=== PATIENT | female | born 1985 | race Caucasian/White ===

== ENCOUNTER 2024-04-30 21:30 | Inpatient (IN) | payer OTHER, SELFPAY ==
--- NOTE | 2024-04-30 17:19 | P.EN_ITS ---
Documented by User: Juliann Lizarraga APRN 04/30/24 17:24 Event Note Date of Service: 04/30/24 Event Note: Review of care with Dr. Villeda of [facility]. Pt is s/p OD of Fentanyl, Verapamil. Admitted on 04/27 to ICU, intubated, hypothermic and bradycardic. Pt was treated conservatively with a washout. She reports being in recovery for ~2 months. Partner just discharged from a program, brought drugs into the home and pt used more than she was aware of. Team reports three such instances requiring medical care since December 2023. Team finds her to be significantly impaired, she is involuntary, does not believe she is in need of treatment and she disagrees with plan of care. She was extubated on 04/29. Chest xray is clear, no sx pneumonia, WBC trending down. Hx of HTN, Epilepsy, Depression, and Opiate Use Disorder- currently on Methadone. Time Spent With Patient Time: Total time managing care of this patient today ____ minutes. Documented by User: Dionicio Ford MD 05/02/24 00:19 Event Note Date of Service: 05/02/24
[2024-05-01 00:30] VITALS: BMI 18.8
--- NOTE | 2024-05-01 00:38 | PC.ADMIT ---
Humera Zhong, 39years old female with past medical hx opiod use d/o, polysubstance abuse, transaminitis, posterior reversible encephalopathy syndrome, abdominal muscle pain, and NERIS, who presented [facility] ED via ambulance after being found unresponsive at her friend's parents' home. Per the ED providers note, pt presented with AMS, bradycardia with suspicion for opiate pain calcium channel cristi OD. Humera required intubating and admission to ICU. Per crisis assessment at [facility], pt. denied trying to kill herself and had reported that she had not used Fentanyl in nearly 2months prior to that day, I dont know why I decided to use and I definitely used too much. Pt arrived to [facility] unit @ 1508 on 04/30/24 with an admitting diagnosis of Unspecified Depressive Disorder. pt. is alert and oriented x4, on 12B. Pt's affect is blunt, incongruent to mood. pt. is calm and pleasant upon arrival, engages easily and complaint with admission process, denied anxiety and depression, asymptomatic of psychiatric symptoms, denied SI/HI/AVH, contracted for safety, VSS. Pt. with no visible skin issues noted, only an old scar on the right eyebrow area. Pt's med. rec competed and provider notified. pt oriented to unit. Pt.'s belongings inventoried/secured. Hospitalist consulted for medical clearance.
--- NOTE | 2024-05-01 07:18 | PC.NURSE ---
Pt on a section 12B and requested to have [facility] notified. [facility] notified.
--- NOTE | 2024-05-01 09:20 | P.HPPS_ITS ---
HPI Date of Service: 05/01/24 Chief Complaint: Unspecified Depressive Disorder Sources of Information: patient interviewed, chart reviewed and crisis/core team assessment reviewed HPI Subjective Notes: [place] Warning, Conditional Voluntary and 3 Day Narrative: Patient is a 39-year-old female with history of PTSD, opioid use disorder who presents from [facility], following fentanyl overdose requiring ICU admission. This is patient's 3rd overdose since December, requiring medical admission. Patient reports to race and sports book writer that this past December 13 she had been using fentanyl and although she went to detox, was excessively sick with intractable vomiting and was transferred to [facility] and medically admitted there. After she was discharged, patient reports she continues to use fentanyl. Patient tells race and sports book writer that on March 07, she accidentally overdosed on fentanyl, her partner called 911 and patient was hospitalized. She tells race and sports book writer she was hospitalized for 7 days and that for 2 days [she] was in a coma and [she] had a brain bleed. P inocencio reports that for about a month and a half she was able to remain sober, while her partner was away at treatment. During this time her partner said she had fentanyl in 1 of her bags at home and patient said she tried to find it but could not; she explains that the day her partner returned, her partner showed her where it was hidden they together used fentanyl, patient saying she could not resist and reports that on April 27 she again overdosed and was medically admitted to [facility], to the ICU and required intubation. She reports this was accidental and not suicidal; also says she took losartan that morning which is her prescribed medication. Patient denies any SI; she says she has 2 daughters and that she needs to be here for them. She denies depression or anxiety; acknowledges history of trauma but says only has PTSD symptoms every few weeks such as nightmares. Patient says she wants to be sober even if her partner does not, but she has no plans for how to pursue this. Patient says to race and sports book writer she has never been to a program for sobriety or engaged in any community help with pursuing sobriety. She does not want a program now, feeling it is too restrictive. She says she is open to perhaps getting a data recovery planner or going to , however she is not willing to commit to these at this time; she is open to considering partial day program but again not ready to commit to this. Custom Stock Maker discussed how serious and life-threatening these overdoses have been; patient says she understands but reiterates that she is committed to staying sober. Custom Stock Maker discussed how difficult it is to stay sober and the need for significant and continued community support; patient remains ambivalent. She would like to get back on methadone. Patient is on a 12 B, refusing to sign in. Patient reports she is now homeless, unable to return to her partner's (since they were living together with her partner's family members) and unable to live at her father's; despite this, she maintains that she does not need psychiatric help and wants to discharge. -patient denies history of manic type episodes or behaviors; denies any AVH -Patient denies alcohol use or abuse pt seen at 1:00pm on 05/01/24 Past Psychiatric History: Denies any past psychiatric hospitalizations Denies any history of psychiatric medication trials No history of suicidality Reports that in high school she would periodically superficially cut as a coping mechanism but has not engaged since high school Medical Evaluation Reviewed: Hospitalist [facility] Pending [facility] Medical History (Updated 05/02/24 @ 12:26 by Sam Terrell MD) PTSD (post-traumatic stress disorder) Opioid use disorder, severe, dependence Depression Mild intermittent asthma GERD (gastroesophageal reflux disease) Substance use disorder HTN (hypertension) Family History: Mother: Depression/anxiety/SI Maternal uncle by suicide Social History: Dropped out of high school in her senior year after mother was diagnosed with cancer Got her GED Patient has 2 daughters, 14 and 16-year-old who live with their biological father Patient is with her partner of 16 years Patient remains in close contact with her father who is supportive She is estranged from siblings Substance History: Patient reports cannabis and Percocets starting in high school Patient eventually started using heroin and switch to [facility]anyl [facility] she has been using since; has been on methadone since 2021, up to 130 mg Last cocaine use a few months ago; denies daily cocaine abuse Denies alcohol use Trauma History: Positive reports history of trauma; did not want to discuss Diagnostics Vital Signs (24Hr): BMI result Body Mass Index 18.8 Meds/Allergies Meds Home Medications ?Medication ?Instructions ?Recorded ?Confirmed ?Type albuterol 90 mcg/actuation aerosol 90 mcg inhalation QID PRN SOB 04/30/24 History inhaler aspirin 81 mg PO DAILY 04/30/24 04/30/24 History losartan 50 mg PO DAILY 04/30/24 04/30/24 History methadone 30 mg PO DAILY 04/30/24 04/30/24 History pantoprazole 40 mg PO DAILY 04/30/24 04/30/24 History verapamil 40 mg PO TID 04/30/24 04/30/24 History Allergies Allergies Allergy/AdvReac Type Severity Reaction Status Date / Time verapamil Allergy Unknown Unknown Verified 04/30/24 17:19 sour cream Allergy Unknown Unknown Uncoded 04/30/24 17:19 Mental Status Exam Mental Status Exam Narrative: Pt is alert and oriented; behavior is a little guarded, but mostly cooperative, calm, polite; patient is not in distress; dressed in casual attire, disheveled; mood is described as okay and affect congruent, constricted; eye contact appropriate; Speech is normal rate, volume and prosody and not pressured; some psychomotor retardation present; thought process is organized and goal directed; Thought content is on discharge; otherwise pertinent to relevant topics and without any delusional content, paranoid ideations or grandiosity; denies any SI/HI. There is no evidence of perceptual disturbance and denies AVH. Patients insight and judgment impaired regarding risk of relapse and consequences Assessment & Plan Assessment & Plan (1) Opioid use disorder, severe, dependence: Status: Acute Code(s): F11.20 - Opioid dependence, uncomplicated (2) PTSD (post-traumatic stress disorder): Status: Acute Code(s): F43.10 - Post-traumatic stress disorder, unspecified (3) HTN (hypertension): Status: Acute Code(s): I10 - Essential (primary) hypertension (4) Mild intermittent asthma: Status: Acute Code(s): J45.20 - Mild intermittent asthma, uncomplicated Plan Patient is a 39-year-old female with history of PTSD, opioid use disorder who presents from [facility], following fentanyl overdose requiring ICU admission. This is patient's 3rd overdose since December, requiring medical admission. Patient reports to race and sports book writer that this past December 13 she had been using fentanyl and although she went to detox, was excessively sick with intractable vomiting and was transferred to [facility] and medically admitted there. After she was discharged, patient reports she continues to use fentanyl. Patient tells race and sports book writer that on March 07, she accidentally overdosed on fentanyl, her partner called 911 and patient was hospitalized. She tells race and sports book writer she was hospitalized for 7 days and that for 2 days [she] was in a coma and [she] had a brain bleed. Patient reports that for about a month and a half she was able to remain sober, while her partner was away at treatment. During this time her partner said she had fentanyl in 1 of her bags at home and patient said she tried to find it but could not; she explains that the day her partner returned, her partner showed her where it was hidden they together used fentanyl, patient saying she could not resist and reports that on April 27 she again overdosed and was medically admitted to [facility], to the ICU and required intubation. She reports this was accidental and not suicidal; also says she took losartan that morning which is her prescribed medication. Patient denies any SI; she says she has 2 daughters and that she needs to be here for them. She denies depression or anxiety; acknowledges history of trauma but says only has PTSD symptoms every few weeks such as nightmares. Patient says she wants to be sober even if her partner does not, but she has no plans for how to pursue this. Patient says to race and sports book writer she has never been to a program for sobriety or engaged in any community help with pursuing sobriety. She does not want a program now, feeling it is too restrictive. She says she is open to perhaps getting a data recovery planner or going to , however she is not willing to commit to these at this time; she is open to considering partial day program but again not ready to commit to this. Custom Stock Maker discussed how serious and life-threatening these overdoses have been; patient says she understands but reiterates that she is committed to staying sober. Custom Stock Maker discussed how difficult it is to stay sober and the need for significant and continued community support; patient remains ambivalent. She would like to get back on methadone. Patient is on a 12 B, refusing to sign in. Patient reports she is now homeless, unable to return to her partner's (since they were living together with her partner's family members) and unable to live at her father's; despite this, she maintains that she does not need psychiatric help and wants to discharge. -patient denies history of manic type episodes or behaviors; denies any AVH -Patient denies alcohol use or abuse Formulation/clinical reasoning: Patient has a significant history of opioid addiction. Since December, she has required 3 inpatient medical hospitalizations due to fentanyl overdoses. Patient denies any SI at all and maintains that each overdose has been accidental; however, despite her resulting near experiences, patient continues to relapse. Either she does not want to or has been unable to extricate herself from her lifestyle in order to engage in treatment for sobriety. Patient says she wants to be sober but is unwilling to commit to a plan to pursue sobriety and she significantly minimizes her need for help and her risk for relapse. Patient is now homeless, without any providers, a erapist or any sobriety treatment in place. She remains at high risk for accidental overdose. Thoroughly discussed case with team and given this risk and lack of supports, team is carefully considering the need to petition the court for a section 35. -patient denies any psychiatric symptoms including any SI; however as she is unknown to this hospital and she has had multiple overdoses, will admit to inpatient unit to monitor and assess Plan: Twelve B Q 15 minute checks Will restart methadone and taper back up to 40 mg, as tolerated; patient says she was on 40 mg prior to recent medical hospitalization Will get EKG to assess QTC Will ask if can pursue collateral as patient says her father supportive Continue losartan; Patient reports history of hypertension and has been on losartan Patient does not know why she was started on aspirin; says she does not want it; per patient refusal, will DC aspirin as well as out of concern for her self reported recent history of brain bleed Patient does not want PPI Patient educated on: diagnosis, medication risk/benefits, substance abuse, therapeutic strategies and medical condition Informed Consent: understands Reason for continued inpatient stay Substantial Risk for: stable for discharge and rapid decompensation Statement Statement: I have reviewed the history and physical and performed a pertinent examination on my patient. No changes have occurred unless specified. If the History and Physical was not performed prior to admission, the Hospitalist's service will be consulted for completing the admission physical. Time Spent With Patient Time: Total time managing care of this patient today ____ minutes.
[2024-05-01] MEDS: Acetaminophen 325 MG TABLET 650 MG PO ×2 (09:26→17:35)
[2024-05-01] MEDS: hydrOXYzine HCL 25 MG TABLET PO ×2 (09:26→17:34)
[2024-05-01] MEDS: Aspirin 81 MG TAB.CHEW PO (09:27)
[2024-05-01 09:30] LABS: Estimated Average Glucose 94 mg/dL; Hemoglobin A1C 139.7407 umol/L; Hemoglobin A1c % 4.9 % (<6.0); Total Hemoglobin (HGBA1C) 4671.2009 umol/L
[2024-05-01 09:33] LABS: Cholesterol 195 mg/dL (<200); HDL Cholesterol 58 mg/dL (>40); LDL Cholesterol Calculated 117 mg/dL (<100); Magnesium 2.3 mg/dL (1.6-2.6); Triglycerides 100 mg/dL (<150)
[2024-05-01 09:49] LABS: Free T4 (Free Thyroxine) 1.16 ng/dL (0.71-1.85); Thyroid Stimulating Hormone 0.29 uIU/mL (0.32-4.0)
--- NOTE | 2024-05-01 10:20 | P.CNHOSGPS_ITS ---
History of Present Illness Data of Consult Service Date: 05/01/24 Requesting physician: Sam Terrell Primary Care Provider: Unknown Physician HPI Reason for consult: medical consult Patient is a 32-year-old female with a past medical history significant for major depression, hypertension, substance use disorder (fentanyl previously injected now intranasally), mild intermittent asthma, GERD, multiple ICU admissions at [facility] requring intubation secondary to OD and recent brain bleed on 03/07/24. Pt states she was told she will likely have seizures afterwards and was started on verapamil but reports no seizures since being discharged in February. She recently OD'd on fentanyl and verapamil after 2 months of sobriety and was admitted to adult psych with concerns for MDD and SI, however, pt declines. She has no medical concerns today and denies chest pain, SOB, abd pain, nausea, vomting, weakness or dizziness. Review of Systems Constitutional: Constitutional: Denies body ache(s), Denies chills, Denies fatigue and Denies headache(s) Eyes: Eyes: Denies blurry vision and Denies change in vision ENT: Reports Normal hearing present, Denies vertigo, Denies headache(s), Denies nasal congestion, Denies nasal obstruction, Denies post nasal drip and Denies sore throat Cardiovascular: Cardiovascular: Denies chest pain, Denies rapid heart rate, Denies leg edema and Denies dyspnea Respiratory: Respiratory: Denies chest congestion, Denies cough and Denies dyspnea Genitourinary: Genitourinary: Denies dysuria and Denies urinary urgency Musculoskeletal: Musculoskeletal: Denies myalgias Integumentary/Breasts: Skin/Breast: Denies rash Neurologic: Reports Normal hearing present, Denies confusion, Denies vertigo, Denies headache(s) and Denies memory loss Psychiatric: Psychiatric: Denies confusion and Denies memory loss Endocrine: Endocrine: Denies fatigue [facility] Medical History (Updated 05/01/24 @ 10:31 by Debbie Stockton PA-C) Depression Mild intermittent asthma GERD (gastroesophageal reflux disease) Substance use disorder HTN (hypertension) Functional capacity: independent ambulation Social History Patient Tobacco Use Status: Current everyday Tobacco user Tobacco use type: Cigarette Cigarette Packs Per Day: 4 Cigarettes Per Day: 80.0 Years Smoked: 22 Smoked in Last 30 Days: Yes e-Cigarette/Vaping Use: Never Used Patient Interested in Nicotine Replacement: No Substance Use Type: Heroin and Marijuana Substance Use Frequency: Occasionally Last Used Substance: Days (ago) Currently Displaying Signs/Symptoms of Drug Intoxication Withdrawal: No Any prior treatment program specific to substance use: Yes (per pt attends a clinic for methadone) Have you been hit, kicked, punched, or otherwise hurt by someone within the past year? If so, by whom?: No Do you feel safe in your current relationship?: No Is there a partner from a previous relationship who is making you feel unsafe now?: No Are you made to feel afraid or neglected: No Advance Directives: No Advance Directives Information Provided: Yes Do you have a plan to hurt others: No Plan Recently lost weight without trying: No Nutrition Risks: No Nutritional Risk Patient : No : No Poor oral hygiene: No Meds Allergies Allergy/AdvReac Type Severity Reaction Status Date / Time verapamil Allergy Unknown Unknown Verified 04/30/24 17:19 sour cream Allergy Unknown Unknown Uncoded 04/30/24 17:19 Active Medications: Current Medications Acetaminophen (Acetaminophen 325 Mg Tablet) 650 mg PO Q6H PRN PRN Reason: Headache/Pain Mild Scale (1-3) Last Admin: 05/01/24 09:26 Dose: 650 mg Al Hydroxide/Mg Hydroxide (Magnesium Hydrox/Alum Hydrox 30 Ml Oral.Susp) 30 ml PO Q6H PRN PRN Reason: Heartburn/Nausea Albuterol Sulfate (Albuterol Sulfate 90 Mcg 8 Gm Inhaler) 2 puff INHALE RQ6H PRN PRN Reason: wheeze Aspirin (Aspirin 81 Mg Tab.Chew) 81 mg PO DAILY WESLEY Last Admin: 05/01/24 09:27 Dose: 81 mg Hydroxyzine HCl (Hydroxyzine Hcl 25 Mg Tablet) 25 mg PO Q6H PRN PRN Reason: Anxiety Last Admin: 05/01/24 09:26 Dose: 25 mg Losartan Potassium (Losartan Potassium 50 Mg Tablet) 50 mg PO DAILY WESLEY; Protocol Magnesium Hydroxide (Milk Of Magnesia 30 Ml Oral.Susp) 30 ml PO DAILY PRN PRN Reason: Constipation Nicotine (Nicotine 21 Mg Patch.Td24) 21 mg TRANSDERMA DAILY PRN PRN Reason: nicotine cravings Nicotine Polacrilex (Nicotine Polacrilex 2 Mg Gum) 4 mg BUCCAL Q2H PRN PRN Reason: Nicotine Cravings Non-Formulary Medication (Non-Formulary Medication) 1 each PO DAILY WESLEY Trazodone HCl (Trazodone Hcl 50 Mg Tablet) 50 mg PO BEDTIME MRX1 PRN PRN Reason: Insomnia Home Medications ?Medication ?Instructions ?Recorded ?Confirmed ?Last Taken ?Type albuterol 90 mcg/actuation aerosol 90 mcg inhalation QID PRN SOB 04/30/24 04/30/24 Unknown History inhaler aspirin 81 mg PO DAILY 04/30/24 04/30/24 Unknown History losartan 50 mg PO DAILY 04/30/24 04/30/24 Unknown History methadone 30 mg PO DAILY 04/30/24 04/30/24 Unknown History pantoprazole 40 mg PO DAILY 04/30/24 04/30/24 Unknown History verapamil 40 mg PO TID 04/30/24 04/30/24 Unknown History Results Labs Labs: Laboratory Results - last 24 hr 05/01/24 08:45 Estimat Average Glucose 94 Hemoglobin A1c % 4.9 Magnesium 2.3 Triglycerides 100 Cholesterol 195 LDL Cholesterol, Calc 117 H HDL Cholesterol 58 TSH 0.29 L Free T4 1.16 Assessment and Plan (1) Medical clearance for psychiatric admission: Status: Acute Plan Patient is a 32-year-old female with a past medical history significant for major depression, hypertension, substance use disorder (fentanyl previously injected now intranasally), mild intermittent asthma, GERD, multiple ICU admissions at [facility] requring intubation secondary to OD and recent brain bleed on 03/07/24. mood disorder - plan per psych FILI - restart methadone once dose confirmed mild intermittent asthma - no acute exacerbation - albuterol PRN GERD - continue PPI ?seizure disorder - will look into [facility] records, no seizure meds in med rec HTN - continue lostartan Thank you for allowing me to participate in the pt's care. Please contact the medical team if any questions or concerns. Physical Exam Vital Signs: BMI result Body Mass Index 18.8 General: AOx3, no acute distress, laying in bed comfortably Resp: CTA bilaterally CVS: S1, S2, RRR GI: +BS, NT, no distention Skin: Warm, dry Neuro: Cranial nerves II-XII grossly intact bilaterally. Motor grossly intact bilaterally Extremities: No edema Psych: Appropriate affect Const General: No confusion Orientation/consciousness: No confusion Eyes Pupils: Equal, round and reactive pupils present Neuro General: No confusion Cranial nerves: Yes CN's II-XII intact bilaterally, Yes Facial sensation intact/muscles of mastication intact, Yes Intact sense of smell present, Yes Equal, round and reactive pupils present, Yes Normal accommodation reflex present, Yes Bilaterally intact EOM present, Yes Nystagmus not present, Yes Normal facial strength present, Yes Midline tongue present, Yes Symmetric palate elevation present, Yes Normal hearing present, Yes Ability to bilaterally rotate head present and Yes Ability to bilaterally elevate shoulders present Cognition (Neuro): normal cognition Gait exam (Neuro): Normal gait present Motor exam (neuro): 5/5 motor strength present throughout
--- NOTE | 2024-05-01 11:21 | P.CONHOSP_ITS ---
History of Present Illness Data of Consult Service Date: 05/01/24 Requesting physician: Sam Terrell Primary Care Provider: Unknown Physician HPI Reason for consult: medical consult Patient is a 32-year-old female with a past medical history significant for major depression, hypertension, substance use disorder (fentanyl previously injected now intranasally), mild intermittent asthma, GERD, multiple ICU admissions at [facility] requring intubation secondary to OD and recent brain bleed on 03/07/24. Pt states she was told she will likely have seizures afterwards and was started on verapamil but reports no seizures since being discharged in February. She recently OD'd on fentanyl and verapamil after 2 months of sobriety and was admitted to adult psych with concerns for MDD and SI, however, pt declines.? She has no medical concerns today and denies chest pain, SOB, abd pain, nausea, vomting, weakness or dizziness. Review of Systems Constitutional: Constitutional: Denies chills, Denies fatigue and Denies headache(s) Eyes: Eyes: Denies change in vision ENT: Denies headache(s), Denies nasal congestion, Denies nasal obstruction, Denies post nasal drip and Denies sore throat Cardiovascular: Cardiovascular: Denies chest pain, Denies rapid heart rate, Denies leg edema and Denies dyspnea Respiratory: Respiratory: Denies chest congestion, Denies cough, Denies dyspnea and Denies wheezing Gastrointestinal: Gastrointestinal: Denies constipation, Denies diarrhea, Denies nausea and Denies vomiting Genitourinary: Genitourinary: Denies dysuria and Denies urinary urgency Musculoskeletal: Musculoskeletal: Denies myalgias, Denies numbness and Denies tingling Integumentary/Breasts: Skin/Breast: Denies rash Neurologic: Denies confusion, Denies headache(s), Denies numbness and Denies tingling Psychiatric: Psychiatric: Denies confusion Endocrine: Endocrine: Denies fatigue Allergic/Immunologic: Allergic/Immunologic: Denies wheezing [facility] Medical History (Updated 05/01/24 @ 10:31 by Debbie Stockton PA-C) Depression Mild intermittent asthma GERD (gastroesophageal reflux disease) Substance use disorder HTN (hypertension) Functional capacity: independent ambulation Social History Patient Tobacco Use Status: Current everyday Tobacco user Tobacco use type: Cigarette Cigarette Packs Per Day: 4 Cigarettes Per Day: 80.0 Years Smoked: 22 Smoked in Last 30 Days: Yes e-Cigarette/Vaping Use: Never Used Patient Interested in Nicotine Replacement: No Substance Use Type: Heroin and Marijuana Substance Use Frequency: Occasionally Last Used Substance: Days (ago) Currently Displaying Signs/Symptoms of Drug Intoxication Withdrawal: No Any prior treatment program specific to substance use: Yes (per pt attends a clinic for methadone) Have you been hit, kicked, punched, or otherwise hurt by someone within the past year? If so, by whom?: No Do you feel safe in your current relationship?: No Is there a partner from a previous relationship who is making you feel unsafe now?: No Are you made to feel afraid or neglected: No Advance Directives: No Advance Directives Information Provided: Yes Do you have a plan to hurt others: No Plan Recently lost weight without trying: No Nutrition Risks: No Nutritional Risk Patient : No : No Poor oral hygiene: No service: No Sexual orientation: Straight/Heterosexual Meds Allergies Allergy/AdvReac Type Severity Reaction Status Date / Time verapamil Allergy Unknown Unknown Verified 04/30/24 17:19 sour cream Allergy Unknown Unknown Uncoded 04/30/24 17:19 Active Medications: Current Medications Acetaminophen (Acetaminophen 325 Mg Tablet) 650 mg PO Q6H PRN PRN Reason: Headache/Pain Mild Scale (1-3) Last Admin: 05/01/24 09:26 Dose: 650 mg Al Hydroxide/Mg Hydroxide (Magnesium Hydrox/Alum Hydrox 30 Ml Oral.Susp) 30 ml PO Q6H PRN PRN Reason: Heartburn/Nausea Albuterol Sulfate (Albuterol Sulfate 90 Mcg 8 Gm Inhaler) 2 puff INHALE RQ6H PRN PRN Reason: wheeze Aspirin (Aspirin 81 Mg Tab.Chew) 81 mg PO DAILY [facility] Last Admin: 05/01/24 09:27 Dose: 81 mg Hydroxyzine HCl (Hydroxyzine Hcl 25 Mg Tablet) 25 mg PO Q6H PRN PRN Reason: Anxiety Last Admin: 05/01/24 09:26 Dose: 25 mg Losartan Potassium (Losartan Potassium 50 Mg Tablet) 50 mg PO DAILY [facility]; Protocol Magnesium Hydroxide (Milk Of Magnesia 30 Ml Oral.Susp) 30 ml PO DAILY PRN PRN Reason: Constipation Nicotine (Nicotine 21 Mg Patch.Td24) 21 mg TRANSDERMA DAILY PRN PRN Reason: nicotine cravings Nicotine Polacrilex (Nicotine Polacrilex 2 Mg Gum) 4 mg BUCCAL Q2H PRN PRN Reason: Nicotine Cravings Non-Formulary Medication (Non-Formulary Medication) 1 each PO DAILY [facility] Trazodone HCl (Trazodone Hcl 50 Mg Tablet) 50 mg PO BEDTIME MRX1 PRN PRN Reason: Insomnia Home Medications ?Medication ?Instructions ?Recorded ?Confirmed ?Last Taken ?Type albuterol 90 mcg/actuation aerosol 90 mcg inhalation QID PRN SOB 04/30/24 04/30/24 Unknown History inhaler aspirin 81 mg PO DAILY 04/30/24 04/30/24 Unknown History losartan 50 mg PO DAILY 04/30/24 04/30/24 Unknown History methadone 30 mg PO DAILY 04/30/24 04/30/24 Unknown History pantoprazole 40 mg PO DAILY 04/30/24 04/30/24 Unknown History verapamil 40 mg PO TID 04/30/24 04/30/24 Unknown History Physical Exam Vital Signs and Narrative: Vital Signs: BMI result Body Mass Index 18.8 General: AOx3, no acute distress, laying in bed comfortably Resp: CTA bilaterally CVS: S1, S2, RRR GI: +BS, NT, no distention Skin: Warm, dry Neuro: Cranial nerves II-XII grossly intact bilaterally. Motor grossly intact bilaterally Extremities: No edema Psych: Appropriate affect Const: General: No confusion Orientation/consciousness: No confusion Neuro: General: No confusion Results Labs Labs: Laboratory Results - last 24 hr 05/01/24 08:45 Estimat Average Glucose 94 Hemoglobin A1c % 4.9 Magnesium 2.3 Triglycerides 100 Cholesterol 195 LDL Cholesterol, Calc 117 H HDL Cholesterol 58 TSH 0.29 L Free T4 1.16 Assessment and Plan (1) Medical clearance for psychiatric admission: Status: Acute Plan Patient is a 32-year-old female with a past medical history significant for major depression, hypertension, substance use disorder (fentanyl previously injected now intranasally), mild intermittent asthma, GERD, multiple ICU admissions at [facility] requring intubation secondary to OD and recent brain bleed on 03/07/24. mood disorder - plan per psych FILI - restart methadone once dose confirmed mild intermittent asthma - no acute exacerbation - albuterol PRN GERD - continue PPI ?seizure disorder - will look into [facility] records, no seizure meds in med rec HTN - continue lostartan Thank you for allowing me to participate in the pt's care. Please contact the medical team if any questions or concerns.
--- NOTE | 2024-05-01 13:21 | MHC.RECOVRN ---
Met with pt in 512 after consult placed to Addiction Medicine for methadone and multiple overdoses. Pt laying in bed, eyes closed, wakes to voice and engages in conversation. Pt reports she had been on 40 mg methadone since Mar 12. She had previously been on higher doses but after an overdose and hospitalization she was brought down to 40 mg. Pt reports 40 mg has been adequate, has not had cravings, has not used in nearly 2 months. Pt reports last dose of methadone was 03/26. Pt reports on 03/26 she used heroin/fentanyl, a little, [place],which resulted in overdose. Pt was brought to [facility] and subsequently transferred to . Pt reports none of her overdoses have been intentional. Pt currently reporting feeling hot/cold, denies other withdrawal symptoms. Pt would like to restart methadone with a goal of 40 mg daily. Pt denies other questions or concerns at this time. Discussed with Juliana Mason APRN.
[2024-05-01 13:41] VITALS: BP 127/74; PULSE 70
[2024-05-01] MEDS: methADONE HCl 20 MG/2 ML ORAL.CONC 10 MG PO ×2 (14:26→22:19)
[2024-05-01] MEDS: Losartan Potassium 50 MG TABLET PO (14:40)
[2024-05-01 20:00] VITALS: BP 129/74; PULSE 68; RESP 16; TEMP 37.3; O2SAT 99
--- NOTE | 2024-05-02 | ECG_ITS ---
Test Reason : qtc check Blood Pressure : / mmHG Vent. Rate : 070 BPM Atrial Rate : 070 BPM P-R Int : 130 ms QRS Dur : 070 ms QT Int : 372 ms P-R-T Axes : 066 004 043 degrees QTc Int : 401 ms Normal sinus rhythm Normal ECG No previous ECGs available Referred By: Sam Terrell Electronically Signed By:ROLANDO BRADEN MD
[2024-05-02] MEDS: methADONE HCl 20 MG/2 ML ORAL.CONC PO (07:37)
[2024-05-02 08:06] VITALS: BP 130/81; PULSE 92; RESP 16; TEMP 36.6; O2SAT 98
[2024-05-02] MEDS: Losartan Potassium 50 MG TABLET PO (08:52)
[2024-05-02] MEDS: hydrOXYzine HCL 25 MG TABLET PO ×2 (10:17→17:56)
--- NOTE | 2024-05-02 12:28 | HO.PSYCHPN ---
Subjective Subjective Date of Service: 05/02/24 Reason For Visit: Unspecified Depressive Disorder Interim History: Met with patient; discussed with team Patient says she is doing well; feels that methadone dose of 20 mg is adequate; says she is eating and sleeping well and thinking more clearly now that she is sober. Patient said that she has wanted to be sober for while, and again explains that while she was sober for a few weeks, watching her partner continue to use she had more clarity on how serious their addiction was; she also reiterates that her overdoses and subsequent hospitalizations are scary and that she wants to be around for her children. 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 However she wants to pursue this on her own; she does not want to attend partial day program. Her plan for sobriety is to try and occupy her time during the day though she does not have many specifics other than to spend time with her father. She says she currently has no where to go; she might rent a hotel room with her partner. Mental Status Exam Mental Status Exam Narrative: Pt is alert and oriented; behavior is a calm, polite; keeps to herself; patient is not in distress; dressed in casual attire, unkempt; mood is described as better and affect congruent, brighter; eye contact appropriate; Speech is normal rate, volume and prosody and not pressured; no psychomotor retardation present; thought process is organized and goal directed; Thought content is on discharge, sobriety; otherwise pertinent to relevant topics and without any delusional content, paranoid ideations or grandiosity; denies any SI/HI. There is no evidence of perceptual disturbance and denies AVH. Patients insight and judgment impaired regarding risk of relapse and ability to stay sober. Diagnostics Vital Signs (24Hr): Vital Signs - 24 hr 05/01/24 13:41 05/01/24 20:00 05/02/24 08:06 Temperature 99.1 F 97.8 F Pulse Rate 70 68 92 Respiratory Rate 16 16 Blood Pressure 127/74 129/74 130/81 Pulse Oximetry 99 98 Oxygen Delivery Method Room Air Room Air BMI result Body Mass Index 18.8 Labs Labs: Laboratory Results - last 48 hr 05/01/24 08:45 Estimat Average Glucose 94 Hemoglobin A1c % 4.9 Magnesium 2.3 Triglycerides 100 Cholesterol 195 LDL Cholesterol, Calc 117 H HDL Cholesterol 58 TSH 0.29 L Free T4 1.16 Medications Medications Current Medications Acetaminophen (Acetaminophen 325 Mg Tablet) 650 mg PO Q6H PRN PRN Reason: Headache/Pain Mild Scale (1-3) Last Admin: 05/01/24 17:35 Dose: 650 mg Al Hydroxide/Mg Hydroxide (Magnesium Hydrox/Alum Hydrox 30 Ml Oral.Susp) 30 ml PO Q6H PRN PRN Reason: Heartburn/Nausea Albuterol Sulfate (Albuterol Sulfate 90 Mcg 8 Gm Inhaler) 2 puff INHALE RQ6H PRN PRN Reason: wheeze Hydroxyzine HCl (Hydroxyzine Hcl 25 Mg Tablet) 25 mg PO Q6H PRN PRN Reason: Anxiety Last Admin: 05/02/24 10:17 Dose: 25 mg Losartan Potassium (Losartan Potassium 50 Mg Tablet) 50 mg PO DAILY [facility]; Protocol Last Admin: 05/02/24 08:52 Dose: 50 mg Magnesium Hydroxide (Milk Of Magnesia 30 Ml Oral.Susp) 30 ml PO DAILY PRN PRN Reason: Constipation Methadone HCl (Methadone Hcl 20 Mg/2 Ml Oral.Conc) 20 mg PO DAILY@0800 [facility] Last Admin: 05/02/24 07:37 Dose: 20 mg Nicotine (Nicotine 21 Mg Patch.Td24) 21 mg TRANSDERMA DAILY PRN PRN Reason: nicotine cravings Nicotine Polacrilex (Nicotine Polacrilex 2 Mg Gum) 4 mg BUCCAL Q2H PRN PRN Reason: Nicotine Cravings Non-Formulary Medication (Non-Formulary Medication) 1 each PO DAILY [facility] Trazodone HCl (Trazodone Hcl 50 Mg Tablet) 50 mg PO BEDTIME MRX1 PRN PRN Reason: Insomnia Allergies Allergies Allergy/AdvReac Type Severity Reaction Status Date / Time verapamil Allergy Unknown Unknown Verified 04/30/24 17:19 sour cream Allergy Unknown Unknown Uncoded 04/30/24 17:19 Assessment & Plan Assessment & Plan (1) Opioid use disorder, severe, dependence: Status: Acute Code(s): F11.20 - Opioid dependence, uncomplicated (2) PTSD (post-traumatic stress disorder): Status: Acute Code(s): F43.10 - Post-traumatic stress disorder, unspecified (3) HTN (hypertension): Status: Acute Code(s): I10 - Essential (primary) hypertension (4) Mild intermittent asthma: Status: Acute Code(s): J45.20 - Mild intermittent asthma, uncomplicated Plan Patient is a 39-year-old female with history of PTSD, opioid use disorder who presents from [facility], following fentanyl overdose requiring ICU admission. This is patient's 3rd overdose since December, requiring medical admission. Patient reports to freelance writer that this past December 13 she had been using fentanyl and although she went to detox, was excessively sick with intractable vomiting and was transferred to [facility] and medically admitted there. After she was discharged, patient reports she continues to use fentanyl. Patient tells freelance writer that on March 07, she accidentally overdosed on fentanyl, her partner called 911 and patient was hospitalized. She tells freelance writer she was hospitalized for 7 days and that for 2 days [she] was in a coma and [she] had a brain bleed. Patient reports that for about a month and a half she was able to remain sober, while her partner was away at treatment. During this time her partner said she had fentanyl in 1 of her bags at home and patient said she tried to find it but could not; she explains that the day her partner returned, her partner showed her where it was hidden they together used fentanyl, patient saying she could not resist and reports that on April 27 she again overdosed and was medically admitted to [facility], to the ICU and required intubation. She reports this was accidental and not suicidal; also says she took losartan that morning which is her prescribed medication. Patient denies any SI; she says she has 2 daughters and that she needs to be here for them. She denies depression or anxiety; acknowledges history of trauma but says only has PTSD symptoms every few weeks such as nightmares. Patient says she wants to be sober even if her partner does not, but she has no plans for how to pursue this. Patient says to freelance writer she has never been to a program for sobriety or engaged in any community help with pursuing sobriety. She does not want a program now, feeling it is too restrictive. 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 [employer] Operator discussed how serious and life-threatening these overdoses have been; patient says she understands but reiterates that she is committed to staying sober. [employer] Operator discussed how difficult it is to stay sober and the need for significant and continued community support; patient remains ambivalent. She would like to get back on methadone. Patient is on a 12 B, refusing to sign in. Patient reports she is now homeless, unable to return to her partner's (since they were living together with her partner's family members) and unable to live at her father's; despite this, she maintains that she does not need psychiatric help and wants to discharge. -patient denies history of manic type episodes or behaviors; denies any AVH -Patient denies alcohol use or abuse Discussed medication history and patient says she is no longer taking pantoprazole or verapamil and does not want; also as mentioned before does not know why she was started on aspirin and refuses it.? Agrees to losartan.? Blood pressures have been [facility] course: 05/02 Patient says she is doing well; feels that methadone dose of 20 mg is adequate; says she is eating and sleeping well and thinking more clearly now that she is sober. Patient said that she has wanted to be sober for while, and again explains that while she was sober for a few weeks, watching her partner continue to use she had more clarity on how serious their addiction was; she also reiterates that her overdoses and subsequent hospitalizations are scary and that she wants to be around for her children. 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 However she wants to pursue this on her own; she does not want to attend partial day program. Her plan for sobriety is to try and occupy her time during the day though she does not have many specifics other than to spend time with her father. She says she currently has no where to go; she might rent a hotel room with her partner. [employer] Operator broached topic of history of trauma and patient agrees that she would really like to see a therapist. 05/02 EKG: QTc Int : 401 ms Normal sinus rhythm Normal ECG No previous ECGs available Formulation/clinical reasoning: Patient has a significant history of opioid addiction. Since December, she has required 3 inpatient medical hospitalizations due to fentanyl overdoses. Patient denies any SI at all and maintains that each overdose has been accidental; however, despite her resulting near experiences, patient continues to relapse. Either she does not want to or has been unable to extricate herself from her lifestyle in order to engage in treatment for sobriety. Patient is very likely sincere when she says says she wants to be sober, however is not ready to commit to a concrete plan to pursue sobriety and she significantly minimizes her need for help and her risk for relapse. Patient is now homeless, without any providers, without a therapist or any sobriety treatment in place. She remains at high risk for accidental overdose. Team thoroughly discussed case and given this risk, her lack of supports or realistic plan for sobriety, team agrees for the need to petition the court for a section 35. of note, patient denies any psychiatric symptoms including any SI and she is not in imminent psychiatric risk for harm to self or others; her risk is only regarding relapse and accidental overdose. Plan: Twelve B Q 15 minute checks Continue methadone 20 mg daily; will likely increase further and possibly titrate back up to 40 mg; patient says she was on 40 mg prior to recent medical hospitalization Will ask if can pursue collateral as patient says her father supportive Continue losartan 50 mg daily; Patient reports history of hypertension and has been on losartan Said has not been taking aspirin; refuses and says does not know why this was ever started; will DC aspirin as well as out of concern for her self reported recent history of brain bleed Said has not been taking pantoprazole; refuses Said has not been taking verapamil; refuses Patient educated on: diagnosis, medication risk/benefits, substance abuse, therapeutic strategies and medical condition Informed Consent: understands Reason for continued inpatient stay Substantial Risk for: stable for discharge Time Spent With Patient Time: Total time managing care of this patient today ____ minutes.
[2024-05-03] MEDS: methADONE HCl 20 MG/2 ML ORAL.CONC PO (07:47)
[2024-05-03 08:00] VITALS: BP 142/81; PULSE 99; RESP 18; TEMP 36.4; O2SAT 100
[2024-05-03] MEDS: Losartan Potassium 50 MG TABLET PO (08:38)
[2024-05-03] MEDS: Acetaminophen 325 MG TABLET 650 MG PO (08:39)
--- NOTE | 2024-05-03 09:19 | PM.PSYDC ---
DS: Providers Provider Date of Service: 05/03/24 Date of admission: 04/30/24 21:30 Date of discharge: 05/03/24 Primary care physician: Unknown Physician Consults: 04/30/24 22:19 Consult to Hospitalist Routine Comment: Consulting Provider: Hospitalist Reason For Exam: Transfer pt 05/01/24 10:45 Addiction Medicine Stat Consulting Provider: Addiction Covering Reason for consultation: methadone &multiple overdose's since December 2023, resulting in ICU admissions Has provider been notified: Yes DS: Diagnosis Discharge Diagnosis (1) Opioid use disorder, severe, dependence: Status: Acute (2) PTSD (post-traumatic stress disorder): Status: Acute (3) HTN (hypertension): Status: Acute (4) Mild intermittent asthma: Status: Acute DS: Medications Discharge Medications Home Medications: Previous Rx's ?Medication ?Instructions ?Recorded albuterol sulfate 90 mcg/actuation 2 puff inhalation RQ6H PRN 05/03/24 aerosol inhaler (Ventolin HFA) wheeze/SOB 30 days #6.7 grams hydroxyzine HCl 25 mg tablet 25 mg PO Q6H PRN Anxiety 30 days 05/03/24 #90 tabs losartan 50 mg PO DAILY 30 days #30 tabs 05/03/24 methadone 10 mg/mL oral 20 mg (2 mL) PO DAILY@0800 #0 mL 05/03/24 concentrate (Methadose) Mental Status Exam Mental Status Exam Narrative: Pt is alert and oriented; behavior is a calm, polite; keeps to herself; patient is not in distress; dressed in casual attire, unkempt; mood is described as good and affect congruent, brighter; eye contact appropriate; Speech is normal rate, volume and prosody and not pressured; no psychomotor retardation present; thought process is organized and goal directed; Thought content is on discharge, sobriety; otherwise pertinent to relevant topics and without any delusional content, paranoid ideations or grandiosity; denies any SI/HI. There is no evidence of perceptual disturbance and denies AVH. Patients insight and judgment impaired regarding risk of relapse and ability to stay sober. Data Data Completed and Pending Completed studies during hospitalization [Text1]: 05/01/24 05/02/24 08:45 11:56 Estimat Average Glucose 94 Hemoglobin A1c % 4.9 Magnesium 2.3 Triglycerides 100 Cholesterol 195 LDL Cholesterol, Calc 117 H HDL Cholesterol 58 Vitamin B12 Pending Folate Pending TSH 0.29 L Free T4 1.16 DS: Summary Hospital Course Hospital Course: Patient is a 39-year-old female with history of PTSD, opioid use disorder who presents from [facility], following fentanyl overdose requiring ICU admission. This is patient's 3rd overdose since December, requiring medical admission. Patient reports to signwriter that this past December 13 she had been using fentanyl and although she went to detox, was excessively sick with intractable vomiting and was transferred to [facility] and medically admitted there. After she was discharged, patient reports she continues to use fentanyl. Patient tells signwriter that on March 07, she accidentally overdosed on fentanyl, her partner called 911 and patient was hospitalized. She tells signwriter she was hospitalized for 7 days and that for 2 days [she] was in a coma and [she] had a brain bleed. Patient reports that for about a month and a half she was able to remain sober, while her partner was away at treatment. During this time her partner said she had fentanyl in 1 of her bags at home and patient said she tried to find it but could not; she explains that the day her partner returned, her partner showed her where it was hidden they together used fentanyl, patient saying she could not resist and reports that on April 27 she again overdosed and was medically admitted to [facility], to the ICU and required intubation. She reports this was accidental and not suicidal; also says she took losartan that morning which is her prescribed medication. Patient denies any SI; she says she has 2 daughters and that she needs to be here for them. She denies depression or anxiety; acknowledges history of trauma but says only has PTSD symptoms every few weeks such as nightmares. Patient says she wants to be sober even if her partner does not, but she has no plans for how to pursue this. Patient says to signwriter she has never been to a program for sobriety or engaged in any community help with pursuing sobriety. She does not want a program now, feeling it is too restrictive. She says she is open to perhaps getting a school standards coach or going to , however she is not willing to commit to these at this time; she is open to considering partial day program but again not ready to commit to this. Fashion Consultant discussed how serious and life-threatening these overdoses have been; patient says she understands but reiterates that she is committed to staying sober. Fashion Consultant discussed how difficult it is to stay sober and the need for significant and continued community support; patient remains ambivalent. She would like to get back on methadone. Patient is on a 12 B, refusing to sign in. Patient reports she is now homeless, unable to return to her partner's (since they were living together with her partner's family members) and unable to live at her father's; despite this, she maintains that she does not need psychiatric help and wants to discharge. -patient denies history of manic type episodes or behaviors; denies any AVH -Patient denies alcohol use or abuse Discussed medication history and patient says she is no longer taking pantoprazole or verapamil and does not want; also as mentioned before does not know why she was started on aspirin and refuses it.? Agrees to losartan.? Blood pressures have been WNL Hospital course: 05/02 Patient says she is doing well; feels that methadone dose of 20 mg is adequate; says she is eating and sleeping well and thinking more clearly now that she is sober. Patient said that she has wanted to be sober for while, and again explains that while she was sober for a few weeks, watching her partner continue to use she had more clarity on how serious their addiction was; she also reiterates that her overdoses and subsequent hospitalizations are scary and that she wants to be around for her children. Patient continues to report that she is open to treatment, considering NA, school standards coach... However she wants to pursue this on her own; she does not want to attend partial day program. Her plan for sobriety is to try and occupy her time during the day though she does not have many specifics other than to spend time with her father. She says she currently has no where to go; she might rent a hotel room with her partner. Fashion Consultant broached topic of history of trauma and patient agrees that she would really like to see a therapist. 05/02 EKG: QTc Int : 401 ms Normal sinus rhythm Normal ECG No previous ECGs available Formulation/clinical reasoning: Patient has a significant history of opioid addiction. Since December, she has required 3 inpatient medical hospitalizations due to fentanyl overdoses. Patient denies any SI at all and maintains that each overdose has been accidental; however, despite her resulting near experiences, patient continues to relapse. Either she does not want to or has been unable to extricate herself from her lifestyle in order to engage in treatment for sobriety. Patient is very likely sincere when she says says she wants to be sober, however is not ready to commit to a concrete plan to pursue sobriety and she significantly minimizes her need for help and her risk for relapse. Patient is now homeless, without any providers, without a therapist or any sobriety treatment in place. She remains at high risk for accidental overdose. Team thoroughly discussed case and given this risk, her lack of supports or realistic plan for sobriety, team agrees for the need to petition the court for a section 35. of note, patient denies any psychiatric symptoms including any SI and she is not in imminent psychiatric risk for harm to self or others; her risk is only regarding relapse and accidental overdose. Medications: Hydroxyzine prn Continue methadone 20 mg daily Continue losartan 50 mg daily Said has not been taking aspirin; refuses and says does not know why this was ever started; will DC aspirin as well as out of concern for her self reported recent history of brain bleed Said has not been taking pantoprazole; refuses Said has not been taking verapamil; refuses Time spent discussing smoking cessation with patient: 3 to 10 minutes Status at Discharge Functional status at discharge: independent ambulation Overall status at discharge: patient is back to baseline Time Spent with Patient Time attestation: Total time managing care of this patient today __50__ minutes. Time spent: Greater than 30 minutes Specific discharge activities: Discussed with team; met with patient; appeared in court; prescriptions, charting Discharge Plan Discharge Anticipated Discharge Date/Time: 05/03/24 11:50 Patient Disposition: [facility] Discharge Diagnosis: PTSD; opioid use disorder Referrals: [facility] [Other] - 1 Week Discharge Medications: New hydroxyzine HCl 25 mg Tablet 25 mg PO Q6H PRN (Reason: Anxiety) 30 Days Qty: 90 0RF methadone [Methadose] 10 mg/mL Concentrate 20 mg PO DAILY@0800 Qty: 0 0RF Rx Instructions: Partial Fill upon patient request. albuterol sulfate [Ventolin HFA] 90 mcg/actuation Hfa Aerosol Inhaler 2 puff inhalation RQ6H PRN (Reason: wheeze/SOB) 30 Days Qty: 6.7 0RF Continued losartan 50 mg PO DAILY 30 Days Qty: 30 0RF Discontinued albuterol 90 mcg/actuation Aerosol 90 mcg INHALATION QID PRN (Reason: SOB) aspirin 81 mg PO DAILY methadone 30 mg PO DAILY pantoprazole 40 mg PO DAILY verapamil 40 mg PO TID Discharge Orders: Discharge Order (Routine); Ordered 05/03/24 Ordered By: Sam Terrell Diet: Regular diet Activity on Discharge: As tolerated Stand Alone Forms: Patient Portal Discharge page, Community Support Print Language: Jamaican Care Plan Goals: Maintain mood and safe behaviors Take medications as prescribed Continue to pursue sobriety Practice coping skills Continue with outpatient providers and reach out to them as needed Health Concerns: Mood stability and behaviors Sobriety Hypertension (history of being prescribed verapamil) Plan of Treatment: Follow up with your PCP, psychiatric provider and other outpatient providers regarding above concerns Take medications as prescribed Assessment: Risk assessment at time of discharge:? Patient was interviewed prior to discharge and found to be fully oriented and without any SI or HI. Patient is not in imminent risk of harm to self or others due to a psychiatric illness; however patient remains at high risk for relapse. Patient has been observed closely by nursing and unit staff throughout admission; patient has not engaged in any behaviors that suggest dangerousness to self or others and has demonstrated appropriate behaviors and impulse control
[2024-05-03] MEDS: Naloxone HCl Nasal TAKE HOME 4 MG SPRAY 8 MG NOSTRILALT (09:28)
[2024-05-03] MEDS: hydrOXYzine HCL 25 MG TABLET PO (12:31)
== END 2024-05-03 14:01 | disposition home or self-care (01) | DRG 755 ==
PROVIDERS: Clinical Nurse Specialist Psychiatric/Mental Health, Adult; Admitting Provider Psychiatry & Neurology Psychiatry; Visit Provider Psychiatry & Neurology Psychiatry
DX: F43.10 Post-traumatic stress disorder, unspecified (principal); G40.909 Epilepsy, unspecified, not intractable, without status epilepticus; F11.20 Opioid dependence, uncomplicated; J45.20 Mild intermittent asthma, uncomplicated; K21.9 Gastro-esophageal reflux disease without esophagitis; I10 Essential (primary) hypertension; F17.210 Nicotine dependence, cigarettes, uncomplicated; Z71.6 Tobacco abuse counseling; Z79.899 Other long term (current) drug therapy
CPT/HCPCS: 36415; 80061; 83036; 83735; 84439; 84443; 93005

== ENCOUNTER 2024-04-30 21:30 | Outpatient (BNV) | payer OTHER, SELFPAY | END 2024-05-02 15:43 | PROVIDERS: Admitting Provider Psychiatry & Neurology Psychiatry; Visit Provider Internal Medicine Cardiovascular Disease | DX: I10 Essential (primary) hypertension (principal); F11.20 Opioid dependence, uncomplicated | CPT/HCPCS: 93010 ==

== ENCOUNTER → 2024-04-30 21:30 | Outpatient (BNV) | payer OTHER, SELFPAY | PROVIDERS: Admitting Provider Psychiatry & Neurology Psychiatry; Visit Provider Clinical Nurse Specialist Psychiatric/Mental Health, Adult | DX: F11.20 Opioid dependence, uncomplicated (principal); F43.11 Post-traumatic stress disorder, acute; I10 Essential (primary) hypertension; J45.20 Mild intermittent asthma, uncomplicated | CPT/HCPCS: 99232; 99233; 99499 ==

== ENCOUNTER → 2024-04-30 21:30 | Outpatient (BNV) | payer OTHER, SELFPAY | PROVIDERS: Admitting Provider Psychiatry & Neurology Psychiatry; Visit Provider Physician Assistant | DX: Z00.8 Encounter for other general examination (principal) | CPT/HCPCS: 99222 ==

== ENCOUNTER 2025-02-19 08:43 | Emergency (ER) | payer OTHER, SELFPAY ==
[2025-02-19 08:55] VITALS: BP 125/76; PULSE 81; RESP 18; TEMP 36.3; O2SAT 99; BMI 22.0
--- NOTE | 2025-02-19 09:12 | ED.MEDCLEAR ---
HPI - Medical Clearance General Chief complaint: Medical Clearance Stated complaint: medical clearance Time Seen by Provider: 02/19/25 09:08 Source: patient Mode of arrival: ambulatory Limitations: no limitations History of Present Illness HPI Narrative: This is a 40 years old female patient with a history of opiate use disorder (fentanyl) presented to the emergency department requesting medical clearance for residential program. Denies any chest pain shortness of breath depression SI. WHITE complaint: medical clearance requested Onset (ago): day(s) (1) Reason for Medical Clearance: other (Residential program) Alleged Intoxication: No Compliant with Home Medications: No Traumatic Symptoms: denies traumatic injury Associated Symptoms: denies other symptoms Related Information Previous Rx's ?Medication ?Instructions ?Recorded albuterol sulfate 90 mcg/actuation 2 puff inhalation RQ6H PRN 05/03/24 aerosol inhaler (Ventolin HFA) wheeze/SOB 30 days #6.7 grams hydroxyzine HCl 25 mg tablet 25 mg PO Q6H PRN Anxiety 30 days 05/03/24 #90 tabs losartan 50 mg PO DAILY 30 days #30 tabs 05/03/24 methadone 10 mg/mL oral 20 mg (2 mL) PO DAILY@0800 #0 mL 05/03/24 concentrate (Methadose) Allergies Allergy/AdvReac Type Severity Reaction Status Date / Time verapamil Allergy Unknown Unknown Verified 02/19/25 08:57 sour cream Allergy Unknown Unknown Uncoded 02/19/25 08:57 Review of Systems Constitutional: Constitutional: Reports no additional constitutional complaints Eyes: Eyes: Reports no additional eye complaints Respiratory: Respiratory: Reports no additional respiratory complaints Genitourinary: Genitourinary: Reports no additional female genitourinary complaints Neurologic: Reports system reviewed and no additional complaints, except as documented [facility] Past Medical History Medical History (Updated 02/19/25 @ 09:16 by John Hurst MD) PTSD (post-traumatic stress disorder) Opioid use disorder, severe, dependence Depression Mild intermittent asthma GERD (gastroesophageal reflux disease) Substance use disorder HTN (hypertension) Social History Social History Patient Tobacco Use Status: Current everyday Tobacco user Tobacco use type: Cigarette Cigarette Packs Per Day: 4 Cigarettes Per Day: 80.0 Years Smoked: 22 e-Cigarette/Vaping Use: Never Used Substance Use Type: Heroin and Marijuana Advance Directives: No Advance Directives Information Provided: Yes Do you have a plan to hurt others: No Plan service: No Sexual orientation: Bisexual Physical Exam Exam: Exam: No acute distress comfortable in the stretcher Vital Signs: Vital Signs: Last Vital Signs Temp 97.3 F 02/19/25 08:55 Pulse 81 02/19/25 08:55 Resp 18 02/19/25 08:55 BP 125/76 02/19/25 08:55 Pulse Ox 99 02/19/25 08:55 O2 Del Method Room Air 02/19/25 08:55 BMI result Body Mass Index 22.0 Const: General: cooperative, comfortable and no acute distress Nutritional Appearance: average body habitus Orientation/consciousness: oriented to time and patient oriented x3 Limitations: no limitations HEENT: Head: Yes normal to inspection General nose exam: Normal external nose present Face and sinus: Yes normal facial exam Neck: Neck: Yes normal visual inspection Chest: Chest palpation & inspection: normal inspection of the chest Resp: Effort & Inspection: normal respiratory effort Auscultation: clear to auscultation bilaterally Cardio: Jugular venous distension: no JVD Rate: regular rate Rhythm: regular rhythm GI: Inspection: Yes normal to inspection Palpation (GI): Soft to palpation Auscultation: normal bowel sounds : General: Yes no CVA tenderness Back/Spine/Pelvis: Back: no CVA tenderness Skin: General skin exam: no rashes or lesions noted Neuro: General: oriented to time and patient oriented x3 Cranial nerves: Yes CN's II-XII intact bilaterally Course Reevaluation(s) Reevaluation #1: Drug screen resulted positive for methadone but she is on chronic methadone we will DC the patient home she is cleared for the program Time: 09:45 Medical Decision Making Medical Decision Making [facility] Narrative: -patient is here with requesting medical clearance she is stable clinically we will add UA and drug screen Differential Diagnosis Differential Diagnoses: The differential diagnosis associated with the presentation includes Urinary tract infection/drug abuse Admission/Observation Consideration of admission/observation: Escalation of care including admission/observation considered Lab Data [facility] Lab Attestation statement: I reviewed the patient's lab results. Labs: Lab Results 02/19/25 Range/Units 09:18 Urine Color Yellow Urine Appearance Clear Urine pH 5.5 (5.0-9.0) Ur Specific [place] 1.015 (1.005-1.025) Urine Protein Negative (Neg-Trace) mg/dL Urine Glucose (UA) Negative (Negative) mg/dL Urine Ketones Negative (Negative) mg/dL Urine Blood Negative (Negative) Urine Nitrite Negative (Negative) Ur Leukocyte Esterase Negative (Negative) Urine Opiates Screen Not Detected (Not Detect) Ur Buprenorphine Scrn Not Detected (Not Detect) ng/mL Ur Oxycodone Screen Not Detected (Not Detect) ng/mL Urine Methadone Screen Positive H (Not Detect) ng/mL Urine Fentanyl Screen Not Detected (Not Detect) Ur Barbiturates Screen Not Detected (Not Detect) Ur Phencyclidine Scrn Not Detected (Not Detect) Ur Amphetamines Screen Not Detected (Not Detect) U Benzodiazepines Scrn Not Detected (Not Detect) Urine Cocaine Screen Not Detected (Not Detect) U Marijuana (THC) Screen POSITIVE H (Not Detect) Chronic Conditions Patient?s care impacted by: Other Substance abuse Discharge Plan Discharge Clinical Impression: Encounter for medical screening examination Patient Disposition: Home, Self-Care Instructions: Medical Clearance for Substance Use Disorder Treatment (ED) Additional Instructions: you are clear for the program Prescriptions: No Action hydroxyzine HCl 25 mg Tablet 25 mg PO Q6H PRN (Reason: Anxiety) 30 Days Qty: 90 0RF methadone [Methadose] 10 mg/mL Concentrate 20 mg PO DAILY@0800 Qty: 0 0RF Rx Instructions: Partial Fill upon patient request. albuterol sulfate [Ventolin HFA] 90 mcg/actuation Hfa Aerosol Inhaler 2 puff inhalation RQ6H PRN (Reason: wheeze/SOB) 30 Days Qty: 6.7 0RF losartan 50 mg PO DAILY 30 Days Qty: 30 0RF Print Language: Maori
[2025-02-19 09:25] LABS: Appearance Urine Clear; Glucose Urine UA Negative (Negative); PH 5.5 (5.0-9.0); Specific Gravity - Urine 1.015 (1.005-1.025)
[2025-02-19 09:36] LABS: Cannabinoid Screen Urine POSITIVE (Not Detect)
[2025-02-19 10:06] VITALS: BP 125/76; PULSE 81; RESP 18; TEMP 36.3; O2SAT 99
== END 2025-02-19 10:07 | disposition home or self-care (01) ==
PROVIDERS: Emergency Provider Emergency Medicine
DX: F11.11 Opioid abuse, in remission (principal); Z00.00 Encounter for general adult medical examination without abnormal findings
CPT/HCPCS: 80307; 81003; 99282